=== PATIENT | male | born 1980 | race Caucasian/White ===

== ENCOUNTER → 2017-09-24 07:55 | Outpatient (CLI) | payer OTHER, SELFPAY ==
--- NOTE | 2017-09-24 08:13 | RAD_ITS ---
STUDY: X-RAY CHEST REASON FOR EXAM: Male, 36 years old. History of childhood leukemia. TECHNIQUE: PA and lateral views of the chest. COMPARISON: Comparison is made with prior study dated July 21, 2013. FINDINGS: The lungs are clear and expanded. Scattered calcified granulomas. There is no demonstrated pleural abnormality. Normal size heart. Normal mediastinum and ye. Normal visualized pulmonary arteries. Normal visualized aortic arch and descending thoracic aorta. There is demineralization of the osseous structures. Normal visualized ribs, clavicles, and shoulders. There is no demonstrated abnormality of the visualized soft tissue structures of the upper abdomen. RAD/Chest PA and Lateral IMPRESSION: No acute abnormality is seen. Electronically Signed: Maximino Hogan MD at 15:16 EDT Tel [phone], Service support ,
--- NOTE | 2017-09-24 08:13 | RAD_ITS ---
STUDY: X-RAY - SOFT TISSUE NECK REASON FOR EXAM: Male, 36 years old. Right cervical mass. History of childhood leukemia. TECHNIQUE: AP and lateral view(s) of the neck were obtained. COMPARISON: None. FINDINGS: Normal visualized nasopharynx, oropharynx, hypopharynx. Normal epiglottis. Normal visualized subglottic tracheal air column. Normal prevertebral soft tissue structures. Normal visualized osseous structures. The soft tissue structures are unremarkable. RAD/Neck for Soft Tissue IMPRESSION: Normal x-ray soft tissue neck. Electronically Signed: Maximino Hogan MD at 15:16 EDT Tel [phone], Service support ,
[2017-09-24 10:54] LABS: Absolute Lymphocyte Count 2.06 X10^3/ul (0.83-4.51); Absolute Neutrophil Count 2.9 X10^3/uL (2.0-7.7); Basophil# 0.04 X10^3/uL; Basophil% 0.7 % (0-1); Eosinophil# 0.24 X10^3/uL; Eosinophils% 4.1 % (0-5); Hematocrit 42.8 % (40-54); Hemoglobin 15.2 g/dl (13.0-16.5); Lymphocyte # 2.06 X10^3/ul (4.0); Lymphocyte % 35.2 % (19-41); Mean Corp Hgb Conc 35.5 g/gl (32-36); Mean Corpuscular Hgb 31.5 pg (27.0-32.0); Mean Corpuscular Volume 88.6 fL (80-94); Mean Platelet Vol. 9.2 fl (6.2-12.0); Monocyte# 0.58 X10^3/uL; Monocyte% 9.9 % (0-10); Neutrophil # 2.93 X10^3/uL (2.7-7.7); Neutrophil % 50.1 % (47-70); POSITIVE COUNT NO; POSITIVE DIFFERENTIAL NO; POSITIVE MORPHOLOGY NO; Platelet Count 310 K/mm3 (150-450); RBC Distribution Width SD 38.6 fl (35.1-43.9); Red Blood Count 4.83 M/mm3 (4.6-6.2); White Blood Count 5.9 K/mm3 (4.4-11.0)
[2017-09-24 11:16] LABS: AST(SGOT) 25 U/L (15-37); Alanine Aminotransfer ALT/SGPT 50 U/L (16-61); Albumin, Serum 3.9 g/dL (3.2-5.0); Alkaline Phosphatase 111 U/L (45-117); Anion Gap 7 (5-15); BUN 13 mg/dL (7-18); Calcium,Total 8.9 mg/dL (8.5-10.1); Chloride 100 mmol/L (98-107); Cholesterol 194 mg/dL (200); EST Glomerular Filtration Rate 91 mL/min (>60); Est Glom Filt Rate - Afr Amer 110 mL/min (>60); Glucose 99 mg/dL (74-106); High Density Lipoprotein 38 mg/dL; Potassium 3.8 mmol/L (3.5-5.1); Protein, Total 7.9 g/dL (6.4-8.2); Sodium Level 137 mmol/L (136-145); Thyroid Stim Hormone (TSH) 1.71 uIU/mL (0.358-3.74); Triglycerides 96 mg/dL; Very Low Density Lipoprotein 19 mg/dL (5-40)
== END ==
PROVIDERS: Internal Medicine Rheumatology; Family Provider Family Medicine; PCP Family Medicine; Visit Provider Family Medicine
DX: Z00.00 Encounter for general adult medical examination without abnormal findings (principal); R22.1 Localized swelling, mass and lump, neck; C94.81 Other specified leukemias, in remission
CPT/HCPCS: 36415; 70360; 71046; 80053; 80061; 84443; 85025

== ENCOUNTER → 2023-11-26 | Outpatient (CLI) | payer BC, SELFPAY ==
[2023-11-26 10:53] LABS: Absolute Lymphocyte Count 2.29 X10^3/uL (0.83-4.51); Absolute Neutrophil Count 1.9 X10^3/uL (2.0-7.7); Basophil# 0.06 X10^3/uL; Basophil% 1.2 % (0-1); Eosinophil# 0.19 X10^3/uL; Eosinophils% 3.9 % (0-5); Hematocrit 43.3 % (40-54); Hemoglobin 15.1 g/dL (13.0-16.5); Lymphocyte # 2.29 X10^3/ul (0.83-4.51); Mean Corp Hgb Conc 34.9 g/dL (32-36); Mean Corpuscular Hgb 31.3 pg (27.0-32.0); Mean Corpuscular Volume 89.8 fL (80-94); Monocyte# 0.46 X10^3/uL; Monocyte% 9.4 % (0-10); NRBC Flagged by Analyzer 0 % (0-5); Neutrophil # 1.87 X10^3/uL (2.7-7.7); Neutrophil % 38.5 % (47-70); Platelet Count 300 K/mm3 (150-450); RBC Distribution Width CV 11.4 % (11.6-14.6); RBC Distribution Width SD 37.2 fl (35.1-43.9); Red Blood Count 4.82 M/mm3 (4.6-6.2); White Blood Count 4.9 K/mm3 (4.4-11.0)
[2023-11-26 11:44] LABS: ALB/GLOB Ratio 1.1 RATIO (0.9-2.4); AST(SGOT) 31 U/L (15-37); Alanine Aminotransfer ALT/SGPT 49 U/L (16-61); Albumin, Serum 3.9 g/dL (3.2-5.0); Alkaline Phosphatase 105 U/L (45-117); Anion Gap 5 (5-15); BUN 12 mg/dL (7-18); BUN/Creat Ratio 10.9 RATIO (10-20); Chloride 104 mmol/L (98-107); Cholesterol 222 mg/dL (200); EST Glomerular Filtration Rate 78 mL/min (>60); Est Glom Filt Rate - Afr Amer 95 mL/min (>60); Globulin 3.7 g/dL (2.2-4.2); Glucose 85 mg/dL (74-106); High Density Lipoprotein 33 mg/dL; Potassium 3.7 mmol/L (3.5-5.1); Protein, Total 7.6 g/dL (6.4-8.2); Sodium Level 136 mmol/L (136-145); Triglycerides 162 mg/dL; Very Low Density Lipoprotein 32 mg/dL (5-40)
[2023-11-26 12:50] LABS: Microalbumin,Random Urine < 5.0 mg/L (NO RANGE EST.)
== END | disposition home or self-care (01) ==
LOC: MTLAB 09:04
PROVIDERS: PCP Family Medicine; Referring Provider Family Medicine; Visit Provider Family Medicine
DX: E78.00 Pure hypercholesterolemia, unspecified (principal); I10 Essential (primary) hypertension
CPT/HCPCS: 36415; 80053; 80061; 82043; 82570; 85025

== ENCOUNTER → 2025-02-14 | Outpatient (CLI) | payer BC, SELFPAY ==
[2025-02-14 10:49] LABS: AST(SGOT) 31 U/L (<=37); Alanine Aminotransfer ALT/SGPT 35 U/L (<=46); Albumin, Serum 4.4 g/dL (3.5-5.0); Alkaline Phosphatase 105 U/L (40-129); Anion Gap 11 (5-15); BUN 10 mg/dL (4-19); BUN/Creat Ratio 9.5 RATIO (10-20); Calcium,Total 10.7 mg/dL (7.6-11.0); Carbon Dioxide 26.1 mmol/L (21.0-32.0); Chloride 101 mmol/L (98-108); Globulin 3.1 g/dL (2.2-4.2); Glucose 123 mg/dL (70-99); Potassium 4.3 mmol/L (3.3-5.1)
[2025-02-14 10:59] LABS: Creatinine, Urine (random) 193.00 mg/dL (39.00-259.00); Microalbumin,Random Urine < 12.0 mg/L (<20 mg/L)
== END | disposition home or self-care (01) ==
LOC: MTLAB 09:09
PROVIDERS: PCP Family Medicine; Referring Provider Family Medicine; Visit Provider Family Medicine
DX: I10 Essential (primary) hypertension (principal)
CPT/HCPCS: 36415; 80053; 82043; 82570

== ENCOUNTER 2025-03-06 08:21 | Observation (INO) | payer BC, SELFPAY ==
[2025-03-06] VITALS (17 sets, daily range): BP systolic 102–137; BP diastolic 60–104; PULSE 78–108; RESP 16–22; TEMP 36–37; O2SAT 88–100; BMI 28.6
--- NOTE | 2025-03-06 08:29 | CT_ITS ---
PROCEDURE: ABDOMEN/PELVIS W IV CONT ONLY 03/06/2025 REASON FOR EXAM: NAUSEA AND VOMITING, PAIN TECHNIQUE: ABDOMEN/PELVIS W IV CONT ONLY Coronal and Sagittal reconstruction series were provided. CONTRAST: Isovue-300 VOLUME: 100 mL One or more dose reduction techniques were used (e.g., Automated exposure control, adjustment of the mA and/or kV according to patient size, use of iterative reconstruction technique. RADIATION DOSE SUMMARY: CTDlvol: 14 mGy DLP: 908.02 mGycm COMPARISON: None FINDINGS: Lung bases: Unremarkable Liver: Normal size. No mass. Gallbladder: The gallbladder is unremarkable. No evidence of gallstones. Spleen: Normal size. Pancreas: Normal size without evidence of mass surrounding inflammation or ductal dilation. Adrenals: Unremarkable Kidneys: Unremarkable Bladder: Unremarkable The prostate is not enlarged. Bowel: Fluid-filled stomach. Nonspecific bowel gas pattern. Appendix: The appendix appears distended with a surrounding inflammatory process. Findings present are consistent with appendicitis. No evidence of abscess. A calcified appendicolith measuring 6.5 mm is seen in the proximal portion of the appendix. Lymph nodes: Unremarkable. Vasculature: The abdominal aorta and IVC are normal. Peritoneum / Retroperitoneum: Unremarkable Bones: Unremarkable CT/Abdomen/Pelvis W IV Cont ONLY IMPRESSION: Findings in keeping with acute appendicitis. There is a 6.5 mm appendicolith i n the proximal portion of the appendix. Reading Location: [id number]
--- NOTE | 2025-03-06 08:30 | ED.VIS.GI ---
HPI HPI - GI History of Present Illness Chief Complaint: Abd Pain Narrative Narrative: 44-year-old male who denies significant past medical history presents with abdominal pain, nausea and vomiting that started earlier this morning, few hours ago. He states that around 8 or 9 PM, he had pizza that was greasy for dinner. Shortly thereafter started developing a stomachache. He has been up intermittently, but did not start vomiting until around 6:00 this morning, approximately 2-1/2 hours ago. States he is vomited 8 or 9 times without any blood in his emesis. No fevers but he feels chilled. No diarrhea. He feels dehydrated. PFSH PFS Home Medications ?Medication ?Instructions ?Recorded ?Last Taken ?Type amlodipine 2.5 mg tablet 2.5 mg PO DAILY 03/06/25 03/05/25 History magnesium oxide 400 mg (241.3 mg 400 mg PO DAILY 03/06/25 03/05/25 History magnesium) tablet ramipril 2.5 mg capsule 2.5 mg PO QPM 03/06/25 03/05/25 History Allergy/AdvReac Type Severity Reaction Status Date / Time No Known Allergies Allergy Verified 06/19/15 21:47 Social History Smoking Status: Never smoker ROS ROS ED ROS Narrative Review of systems positive for periumbilical pain. Positive nausea and vomiting. No hematemesis. No fever, positive chills. No diarrhea. No exacerbating or alleviating factors. EXAM Physical Exam Narrative Exam Narrative: Afebrile. Vital signs noted. Nontoxic-appearing. Cardiovascular examination feels regular rate and rhythm. Lungs are clear to auscultation bilaterally. Abdomen is soft and diffusely tender in the periumbilical area. No rebound or guarding. Negative Rovsing sign. No pain in right upper quadrant. Positive bowel sounds. Neurological examination nonfocal, nonlateralizing. Const Vital Signs: 03/06/25 08:22 Temperature 96.8 F L Temperature Source Temporal Pulse Rate 79 Respiratory Rate 22 H Blood Pressure 137/99 H Blood Pressure Mean 111 Pulse Ox 100 Oxygen Delivery Method Room Air MDM MDM MDM Narrative Medical decision making narrative: Differential diagnosis includes but not limited to gastritis/gastroenteritis versus acute appendicitis versus diverticulitis versus colitis. Patient initially given morphine and ondansetron for analgesia. I reviewed his laboratory work and he has slight leukocytosis of 13.0 with hemoglobin 16.0, hematocrit 43.7, platelet count 342. Glucose 133 and electrolyte panel otherwise unremarkable, LFTs normal. Urinalysis negative for infection with 0-5 WBCs. I reviewed the radiology report and he has acute appendicitis with an appendicolith measuring 6.5 mm. Upon repeat examination, his abdomen remains soft and he has negative rebound or guarding, negative Rovsing sign. He did require additional pain medication in the form of Dilaudid 0.5 mg. He was started on Zosyn as well. I discussed the patient with Dr. Nobles. Patient evaluated in the ED by the PA-C with surgery. Patient will be admitted to the medical surgical floor with plan for OR later in the day. Disposition is admitted in stable condition. History & Record Review Discussion w/independent historian: Patient and Family () Additional record(s) reviewed:: Prior ED visit (Previous gastroenteritis) Lab Data Attestation: I reviewed the patient's lab results. Labs: Laboratory Results - last 24 hr 03/06/25 03/06/25 08:35 09:48 WBC 13.0 H RBC 5.10 Hgb 16.0 Hct 43.7 MCV 85.7 MCH 31.4 MCHC 36.6 H RDW Std Deviation 36.2 RDW Coeff of Katie 11.6 Plt Count 342 MPV 8.5 Immature Gran % (Auto) 0.400 Neut % (Auto) 75.3 H Lymph % (Auto) 15.4 L Petroleum % (Auto) 7.3 Eos % (Auto) 0.8 Baso % (Auto) 0.8 Absolute Neuts (auto) 9.8 H Absolute Lymphs (auto) 2.01 Nucleated RBC % 0 Sodium 137 Potassium 3.8 Chloride 99 Carbon Dioxide 22.6 Anion Gap 15 BUN 12 Creatinine 0.97 Estim Creat Clear Calc 95.57 Est GFR (MDRD) Non-Af 100 BUN/Creatinine Ratio 12.4 Glucose 133 H Calcium 10.5 Total Bilirubin 0.69 AST 28 ALT 33 Alkaline Phosphatase 113 Total Protein 7.7 Albumin 4.5 Globulin 3.2 Albumin/Globulin Ratio 1.4 Urine Color Yellow Urine Clarity Clear Urine pH 8.0 Ur Specific Bod[place] 1.015 Urine Protein Negative Urine Glucose (UA) Normal Urine Ketones Negative Urine Occult Blood Negative Urine Nitrite Negative Urine Bilirubin Negative Urine Urobilinogen Normal Ur Leukocyte Esterase Negative Urine RBC 0 SEEN Urine WBC 0-5 SEEN Ur Squamous Epith Cells 0 SEEN Urine Bacteria RARE Urine Mucus 0 SEEN Radiography Diagnostic Testing: Clinical Impression(s) from Imaging Studies Abdomen/Pelvis CT 03/06/25 08:29 IMPRESSION: Findings in keeping with acute appendicitis. There is a 6.5 mm appendicolith in the proximal portion of the appendix. 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
[2025-03-06] MEDS: 0.9% Normal Saline (1000mL) 1,000 ML 999 ML IV (08:51)
[2025-03-06 08:54] LABS: Hematocrit 43.7 % (40-54); Hemoglobin 16.0 g/dL (13.0-16.5); Immature Granulocytes Count 0.050 X10^3/uL (0.0-0.0); Mean Corp Hgb Conc 36.6 g/dL (32-36); Mean Corpuscular Volume 85.7 fL (80-94); Mean Platelet Vol. 8.5 fl (6.2-12.0); NRBC Flagged by Analyzer 0 % (0-5); Platelet Count 342 K/mm3 (150-450); RBC Distribution Width CV 11.6 % (11.6-14.6); RBC Distribution Width SD 36.2 fl (35.1-43.9); Red Blood Count 5.10 M/mm3 (4.6-6.2); White Blood Count 13.0 K/mm3 (4.4-11.0)
[2025-03-06 09:43] LABS: AST(SGOT) 28 U/L (<=37); Alanine Aminotransfer ALT/SGPT 33 U/L (<=46); Albumin, Serum 4.5 g/dL (3.5-5.0); Alkaline Phosphatase 113 U/L (40-129); Anion Gap 15 (5-15); BUN 12 mg/dL (4-19); BUN/Creat Ratio 12.4 RATIO (10-20); Calcium,Total 10.5 mg/dL (7.6-11.0); Carbon Dioxide 22.6 mmol/L (21.0-32.0); Chloride 99 mmol/L (98-108); Estimated Creatinine Clearance 95.57 ml/min (50-250); Globulin 3.2 g/dL (2.2-4.2); Glucose 133 mg/dL (70-99); Potassium 3.8 mmol/L (3.3-5.1)
[2025-03-06 09:50] LABS: Mucous, Urine 0 SEEN /hpf (<or=2+); Red Blood Cells-Urine 0 SEEN /hpf (0-5); Squamous Epithelial Cells - UA 0 SEEN /hpf (0-5)
[2025-03-06 09:51] LABS: Color, Urine Yellow (Yellow); Glucose, Dipstick Normal (Normal); Ketone-Dipstick Negative (Negative); Leukocyte Esterase-Dipstick Negative /ul (Negative); Nitrite-Dipstick Negative (Negative); Occult Blood-Urine Negative /ul (Negative); Protein-Dipstick Negative (Negative); Specific Gravity, Urine 1.015 (1.002-1.030); Urine Bilirubin Dipstick Negative (Negative)
--- NOTE | 2025-03-06 10:33 | PCM.HP.STD ---
HPI - General General Date of Admission: 03/06/25 Date of Service: 03/06/25 Chief Complaint: Abdominal pain HPI Narrative JOELLE GARCIA, is a 44 M who presents with a 1 day history of worsening abdominal pain, nausea and vomiting. Patient notes eating [employer] pizza last night, which had been very greasy. Patient provided little history. Majority of history was per patient's . Patient notes around 9 pm he started with abdominal pain. At 5 AM the nausea and multiple episodes of vomiting started. He contacted his at work noting he needed to go to the ED. She had noted patient was short of breath as well. Patient notes appetite and bowel habits have been normal leading up to this point. Patient denies any previous abdominal surgeries. 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 He notes being in remission since the age of 12. He denies any cardiac or pulmonary history. He denies any blood clots previously. CT scan of the ab/pel demonstrated the following: The appendix appears distended with a surrounding inflammatory process. Findings present are consistent with appendicitis. No evidence of abscess. A calcified appendicolith measuring 6.5 mm is seen in the proximal portion of the appendix. WBC 13.0 with left shift, Hgb 16.0, Hct 43.7, Plt 342 PFSH Home Medications ?Medication ?Instructions ?Recorded ?Last Taken ?Type amlodipine 2.5 mg tablet 2.5 mg PO DAILY 03/06/25 03/05/25 History magnesium oxide 400 mg (241.3 mg 400 mg PO DAILY 03/06/25 03/05/25 History magnesium) tablet ramipril 2.5 mg capsule 2.5 mg PO QPM 03/06/25 03/05/25 History Allergy/AdvReac Type Severity Reaction Status Date / Time No Known Allergies Allergy Verified 03/06/25 10:40 Social History Smoking Status: Never smoker ROS Constitutional Constitutional: Reports systems reviewed and no addt'l complaints, except as documented Eyes Eyes: Reports systems reviewed and no addt'l complaints, except as documented ENT HEENT: Reports systems reviewed and no addt'l complaints, except as documented Cardiovascular Cardiovascular: Reports systems reviewed and no addt'l complaints, except as documented Respiratory/Chest Respiratory/Chest: Reports systems reviewed and no addt'l complaints, except as documented Gastrointestinal Gastrointestinal: Reports systems reviewed and no addt'l complaints, except as documented Genitourinary Genitourinary: Reports systems reviewed and no addt'l complaints, except as documented Musculoskeletal Musculoskeletal: Reports systems reviewed and no addt'l complaints, except as documented Integumentary Integumentary: Reports systems reviewed and no addt'l complaints, except as documented Neurologic Neurologic: Reports systems reviewed and no addt'l complaints, except as documented Psychiatric Psychiatric: Reports systems reviewed and no addt'l complaints, except as documented Endocrine Endocrinology: Reports systems reviewed and no addt'l complaints, except as documented Hematologic/Lymphatic Hematologic/Lymphatic: Reports systems reviewed and no addt'l complaints, except as documented Allergic/Immunologic Allergic/Immunologic: Reports systems reviewed and no addt'l complaints, except as documented Vital Signs Vital Signs Vital Signs: 03/06/25 08:22 Temperature 96.8 F L Temperature Source Temporal Pulse Rate 79 Respiratory Rate 22 H Blood Pressure 137/99 H Blood Pressure Mean 111 Pulse Ox 100 Oxygen Delivery Method Room Air Weight Weight: 172 lb Body Mass Index (BMI) 28.6 Physical Exam Const alert, oriented x3 and no apparent distress HEENT normocephalic and head/scalp atraumatic Eyes PERRL Neck full ROM Resp normal respiratory effort and normal air movement Cardio regular rate and regular rhythm GI GI Narrative: Abdomen- soft, slightly distended, guarding with palpation at the umbilicus and right lower quadrant. Positive Mcburney's sign. Hypoactive bowel sounds. no CVA tenderness Back/Spine no CVA tenderness Extremity normal to inspection Skin no rashes or lesions noted Neuro moves all extremities, no focal motor deficits and no sensory deficits noted Psych mental status grossly normal and cooperative Results Lab / Micro Data 03/06/25 08:35 03/06/25 08:35 Labs: Laboratory Results - last 24 hr 03/06/25 08:35: WBC 13.0 H, RBC 5.10, Hgb 16.0, Hct 43.7, MCV 85.7, MCH 31.4, MCHC 36.6 H, RDW Std Deviation 36.2, RDW Coeff of Katie 11.6, Plt Count 342, MPV 8.5, Immature Gran % (Auto) 0.400, Neut % (Auto) 75.3 H, Lymph % (Auto) 15.4 L, Wetzel % (Auto) 7.3, Eos % (Auto) 0.8, Baso % (Auto) 0.8, Absolute Neuts (auto) 9.8 H, Absolute Lymphs (auto) 2.01, Nucleated RBC % 0, Sodium 137, Potassium 3.8, Chloride 99, Carbon Dioxide 22.6, Anion Gap 15, BUN 12, Creatinine 0.97, Estim Creat Clear Calc 95.57, Est GFR (MDRD) Non-Af 100, BUN/Creatinine Ratio 12.4, Glucose 133 H, Calcium 10.5, Total Bilirubin 0.69, AST 28, ALT 33, Alkaline Phosphatase 113, Total Protein 7.7, Albumin 4.5, Globulin 3.2, Albumin/Globulin Ratio 1.4 03/06/25 09:48: Urine Color Yellow, Urine Clarity Clear, Urine pH 8.0, Ur Specific Leupp 1.015, Urine Protein Negative, Urine Glucose (UA) Normal, Urine Ketones Negative, Urine Occult Blood Negative, Urine Nitrite Negative, Urine Bilirubin Negative, Urine Urobilinogen Normal, Ur Leukocyte Esterase Negative, Urine RBC 0 SEEN, Urine WBC 0-5 SEEN, Ur Squamous Epith Cells 0 SEEN, Urine Bacteria RARE, Urine Mucus 0 SEEN Imaging Radiology Impression Abdomen/Pelvis CT 03/06/25 08:29 IMPRESSION: Findings in keeping with acute appendicitis. There is a 6.5 mm appendicolith in the proximal portion of the appendix. Reading Location: [id number] Assessment & Plan Assessment/Plan (1) Acute appendicitis: QUALIFIERS: Acute appendicitis type: with localized peritonitis Appendicitis gangrene presence: without gangrene Appendicitis perforation presence: without perforation Appendicitis abscess presence: without abscess Qualified Code(s): K35.30 - Acute appendicitis with localized peritonitis, without perforation or gangrene PLAN: I am seeing this patient in conjunction with Dr. Nobles. He will independently evaluate this patient. Patient is a 44 y/o M who presented with a 1 day history of umbilical/right lower quadrant pain with associated nausea and vomiting. CT scan confirms acute appendicitis with an appendicolith present. Dr. Nobles will plan to perform a laparoscopic appendectomy. Procedure details, risks and benefits have been explained to the patient. Patient and his have had the opportunity to ask and have questions answered. Patient verbally understands and agrees with the plan. Post-operative instructions were also reviewed with the patient and his . Plan to admit patient for observation with the possibility of discharge post-operatively today versus discharge tomorrow. Thank you for allowing us to participate in this patient's care. Charges/Coding Visit Charges OBSV E&M: 77147 Observ/hosp same date L2
[2025-03-06] MEDS: Piperacil/Tazobactam 3.375 GM in 0.9% Normal Saline (50mL MB+) 50 ML IV ×3 (10:35→23:27)
[2025-03-06] MEDS: HYDROmorphone 0.5 MG/0.5 ML SYRINGE IV (10:35)
[2025-03-06] MEDS: 0.9% Normal Saline (1000mL) 1,000 ML 100 ML IV ×2 (12:23→17:43)
[2025-03-06] MEDS: 0.9% Saline Lock 10 ML Syringe IV (12:49)
--- NOTE | 2025-03-06 13:44 | NURSING ---
Pt sent for surgery
--- NOTE | 2025-03-06 14:01 | PCM.PRE.AN2 ---
ASA Classification* ASA Classification ASA Classification: 2 and E Assessment & Plan Anesthesia* Anesthesia Assessment Anesthesia Assessment: Discussed sedation and/or anesthesia options, risks, benefits, and alternatives with patient/parents/legal guardian/POA. Questions invited. The patient/parents/legal guardian/POA seems to understand and agrees to proceed with anesthesia plan. Reviewed the physical assessment, medical history, allergy history and patient home medications list prior to surgery/procedure/anesthetic and documented any changes. Performed airway and anesthesia risk assessments. Anesthesia Type Anesthesia Type: General History Source History Obtained from:: Patient and Chart Anesthesia Focused Assessment* Temperature: 98.5 F Pulse Rate: 85 Blood Pressure: 130/84 Respiratory Rate: 18 Pulse Ox: 100 Oxygen Delivery Method: Room Air Airway Assessment Mouth opens: >3 cm Mallampati Score: IV Teeth Condition: Caps/Crowns (Patient has couple caps. They are tight.) and Missing (Patient has a couple missing teeth. Rest of the teeth are tight.) Neck Range of motion (ROM): Limited ROM (Slight Decrease) Labs Anesthesia Preop lab: CBC WBC 13.0 K/mm3 (4.4-11.0) H 03/06/25 08:35 03/06/25 RBC 5.10 M/mm3 (4.6-6.2) 03/06/25 08:35 03/06/25 Hgb 16.0 g/dL (13.0-16.5) 03/06/25 08:35 03/06/25 Hct 43.7 % (40-54) 03/06/25 08:35 03/06/25 Plt Count 342 K/mm3 (150-450) 03/06/25 08:35 03/06/25 CHEMISTRY Potassium 3.8 mmol/L (3.3-5.1) 03/06/25 08:35 03/06/25 Sodium 137 mmol/L (133-145) 03/06/25 08:35 03/06/25 BUN 12 mg/dL (4-19) 03/06/25 08:35 03/06/25 Creatinine 0.97 mg/dL (0.70-1.20) 03/06/25 08:35 03/06/25 Glucose 133 mg/dL (70-99) H 03/06/25 08:35 03/06/25 TSH 1.71 uIU/mL (0.358-3.74) 09/24/17 08:01 09/24/17 COAG Pre-Assessment Diagnosis/Proposed Procedure Planned Operative Procedure(s): Laparoscopic appendectomy Anesthesia History 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 When Was Last Pacemaker Check QUESTION #4 FULL TEXT: You/Your Family Experience fever (hyperthermia) with Anesthesia Last Oral Intake Last Oral intake: Last Oral Intake NPO since No Meds taken in AM with sips of water? Meds patient instructed to take am of surgery PONV PONV - fast food shift supervisor: PONV - fast food shift supervisor Female HX of Motion Sickness HX of N/V After Surgery Non-Smoker Duration of Surgery greater than 60 minutes Number of Risk Factors PONV Score Height & Weight Height & Weight: Anesthesia: Height & Weight Height 5 ft 5 in 03/06/25 11:35 Weight: 78.018 kg 03/06/25 11:35 Body Mass Index (BMI) 28.6 03/06/25 11:35 Respiratory Assessment Respiratory Assessment - fast food shift supervisor: Respiratory Tract Infection Hx - fast food shift supervisor Hx Respiratory Tract Infection No STOP Sleep Apnea STOP Sleep Apnea - fast food shift supervisor: STOP Sleep Apnea - fast food shift supervisor Hx Hypertension Yes 03/06/25 11:35 Hx Sleep Apnea No 03/06/25 11:35 CPAP BIPAP Do you snore loudly (louder No 03/06/25 11:35 than talking or can be heard Do you often feel tired/ No 03/06/25 11:35 fatigued/ sleepy during daytime? Has anyone observed you stop No 03/06/25 11:35 breathing during sleep? STOP Results Negative 03/06/25 11:35 QUESTION #5 FULL TEXT : Do you snore loudly (louder than talking or can be heard through closed doors)? Tobacco Use History Tobacco Use History - fast food shift supervisor: Tobacco Use History - fast food shift supervisor Tobacco Use Smoking Status Never smoker 03/06/25 11:35 Hx Tobacco Use No 03/06/25 11:35 Years Smoking Packs Smoked per Day Smoking Cessation Date was within the last 15 years Hx Smoking Cessation Date Hx Smoking Cessation Counseling Hematologic Medial History Hematologic Hx - fast food shift supervisor: Hematologic Medical Hx - fermenting cellar dropper Hx of Blood Transfusion Yes 03/06/25 11:35 Hx of Transfusion in last 3 No 03/06/25 11:35 Months Date of Last Transfusion (if within last 3 months) Ever experience any problems No 03/06/25 11:35 with transfusion(s)? Specify any problems Hx of Preganancy in last 3 N/A 03/06/25 11:35 Months Nurse Filling Out Transfusion [id number] 03/06/25 11:35 & Questions: Date: 03/06/25 03/06/25 11:35 Time: 11:46 03/06/25 11:35 Patient unable to answer at this time (ie. confused, unrespo /Reproduction History /Reproductive History - fast food shift supervisor: /Reproductive Hx- fast food shift supervisor Hx Now Gestational Age (in weeks): EDC: Hx Hx Para Hx Section SAB Active Medications Active Medications: Current Medications Generic Name Dose Route Start Last Admin Trade Name Freq PRN Reason Stop Dose Admin Acetaminophen 650 mg 03/06/25 11:35 Acetaminophen 325 Mg Tablet PO Q6H PRN PRN Pain 1-10 Or Fever >100.7 Docusate Sodium 100 mg 03/06/25 11:35 Docusate Sodium 100 Mg Capsule PO BID PRN PRN Constipation Sodium Chloride 1,000 mls @ 100 mls/hr 03/06/25 11:35 03/06/25 12:23 IV 100 mls/hr .Q10H JR Administration Piperacillin Sod/Tazobactam 50 mls @ 12.5 mls/hr 03/06/25 17:00 Sod 3.375 gm/ Sodium Chloride IV Q8 JR Sodium Chloride 250 mls @ 15 mls/hr 03/06/25 11:48 IV .[id number] PRN Saline Flush Sodium Chloride 250 mls @ 15 mls/hr 03/06/25 11:48 IV .[id number] PRN Additional IVPB Infusion Morphine Sulfate 2 - 4 mg 03/06/25 11:35 03/06/25 12:49 Morphine 2 Mg/Ml Syringe IV 2 mg Q3H PRN PRN Administration Pain Score 6-10 Ondansetron HCl 4 mg 03/06/25 11:35 Ondansetron 4 Mg/2 Ml Vial IV Q8H PRN PRN NAUSEA/VOMITING Oxycodone HCl 5 mg 03/06/25 11:35 Oxycodone 5 Mg Tablet PO Q4H PRN PRN Pain Score 4-10 Sodium Chloride 10 - 40 ml 03/06/25 11:48 03/06/25 12:49 0.9% Saline Lock 10 Ml Syringe IV 10 ml UD PRN Administration SALINE FLUSH [facility] Medical History (Updated 03/06/25 @ 14:[address] Kennedy Solano MD) Leukemia in remission Hypertension Home Medications ?Medication ?Instructions ?Recorded ?Last Taken ?Type amlodipine 2.5 mg tablet 2.5 mg PO DAILY 03/06/25 03/05/25 History magnesium oxide 400 mg (241.3 mg 400 mg PO DAILY 03/06/25 03/05/25 History magnesium) tablet ramipril 2.5 mg capsule 2.5 mg PO QPM 03/06/25 03/05/25 History Allergy/AdvReac Type Severity Reaction Status Date / Time No Known Allergies Allergy Verified 03/06/25 10:40 no surgical history Social History Smoking Status: Never smoker Review of Systems (Anesthesia) ROS Narrative System reviewed and no additional complaints, except as documented.
--- NOTE | 2025-03-06 15:00 | APP_PTH ---
PATIENT: JOLELE GARCIA LOC: [facility] U#:[id number] AGE/SX: 44/M ROOM: MT315 RE03/06/[address]: Dr. Isaac Nobles MD : 1980 BED: 1 DIS: 03/07/2025 SPEC #: [id number] RECD: 03/06/25 18:15 STATUS: RHODA MATA #: [id number] TOSHIA: 03/06/25 15:[address]: Isaac Nobles DEPT: SURGICAL PATHOLOGY RECD BY: Will Aliica ENTERED: 03/07/25 11:06 SP TYPE: APPENDIX OTHR DR: Dr. Arias Small MD Tissues: A - Appendix, NOS Procedures: Surgery Specimen Level III HEADER OPERATION: Laparoscopic appendectomy PRE-OP DIAGNOSIS: Acute appendicitis TISSUE SUBMITTED: A- Appendix MICROSCOPIC DIAGNOSIS A. Appendix, laparoscopic appendectomy: - Acute appendicitis. MICROSCOPIC DESCRIPTION Slides are reviewed. GROSS DESCRIPTION A. Received in formalin labeled with the patient's name and date of . Designated as appendix is a 7.9 x 1.3 cm justin-hdz appendix with patchy serosal congestion and fibrinous exudate. The margin is inked black and shaved. Sectioning reveals dilated lumen containing copious amounts of fecal material including a possible fecalith. The mucosa is a justin-pink to red and granular. Supervisor Cutting And Boning sections are submitted in 2 cassettes as follows: A1: Distal tipA2: Margin and cross-section ME 03/07/2025 CPT:00292
[2025-03-06] MEDS: Midazolam 2 MG/2 ML Syringe IV (15:14)
[2025-03-06] MEDS: Lidocaine 1% (5 ml sdv) 5 ML Vial IV (15:22)
[2025-03-06] MEDS: fentaNYL 100 MCG/2 ML Ampul 150 MCG IV (15:22)
[2025-03-06] MEDS: Bupiv/Epi 0.25% 30 ML Vial (15:45)
--- NOTE | 2025-03-06 15:51 | OP.PCM_ITS ---
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 The left arm was tucked and the abdomen was prepped and draped in usual sterile fashion. A small midline incision was made superior to the umbilicus and deepened to the level of the fascia. The fascia was elevated and incised. The peritoneum was also elevated and incised. A finger sweep was pe rformed and a balloon trocar was placed into the abdomen and inflated. The abdomen was insufflated to 15 mmHg and the camera was inserted and the abdomen was inspected for any injuries upon entering the abdomen. There were none. The patient was placed in Trendelenburg position and a 5 mm ports placed in the left lower quadrant and suprapubic areas under direct visualization. Next using atraumatic bowel graspers the appendix was identified. The appendix was gangrenous. The appendix was grasped and elevated and Enseal was used to take down the mesoappendix. A stapler was used to come across the base of the appendix. The appendix was then placed in Endo Catch bag and removed through the umbilical incision. The staple line was inspected and found to be hemostatic and intact. The 2 5 mm ports are removed under direct visualization. The balloon trocar was deflated and removed and all the air was removed from the abdomen. The umbilical incision fascia was closed with an 0 Vicryl f [id number] suture. The incisions were then irrigated with saline and dried. Local anesthetic was injected into the incision sites. The skin incisions were then closed with interrupted 4-0 Monocryl suture and Steri-Strips. Bandages were applied and the patient was awoken and taken to PACU in stable condition. Patient tolerated the procedure well. Surgical Findings: Gangrenous appendix, contaminated case Complications Complications: No Admit VTE Documentation VTE Mechan Device Prophylaxis: SCD's
--- NOTE | 2025-03-06 16:11 | PCM.POST.ANE ---
Anesthesia: Postop Eval I Current Vital Signs Temperature: 97.6 F Pulse Rate: 95 Blood Pressure: 111/71 Respiratory Rate: 16 Pulse Ox: 99 Oxygen Delivery Method: Nasal Cannula Oxygen Flow Rate (L/min): 2 Assessment Airway patent: Yes Spontaneous unlabored respirations: Yes Mental status: Awake and Confused nausea: No Vomiting: No Anesthesia Complication: No Fluid Hydration Crystalloid volume administer (ml): 900 Total IV fluid infused: 900 Progress Note Anesthesia document: Postop Eval 1 completed: Yes
--- NOTE | 2025-03-06 17:14 | POSTOPAN2_ITS ---
Anesthesia Postop Eval I Sum Postop Eval Completion status Anesthesia document: Postop Eval 1 completed: Yes Anesthesia Postop Eval I Summary Anesthesia Postop Eval I Summary: Anesthesia Postop Eval I: Assessment Summary Airway patent Yes 03/06/25 16:12 [email or web address] Spontaneous unlabored Yes 03/06/25 16:12 [email or web address] respirations Mental status Awake,Confused 03/06/25 16:12 [email or web address] nausea No 03/06/25 16:12 [email or web address] Vomiting No 03/06/25 16:12 [email or web address] Anesthesia Postop Eval I: Fluid Summary Crystalloid volume administer 900 03/06/25 16:12 [email or web address] (ml) Colloids volume administered ( ml) Blood Product volume administered (ml) Total IV fluid infused 900 03/06/25 16:12 [email or web address] Anesthesia Postop Eval I: Summary Notes Anesthesia Complication No 03/06/25 16:12 [email or web address] Anesthesia Complication Comment: Post-operative progress note Anesthesia: Postop Eval II Evaluation Mental status: Awake and Calm Pain Level: 2 nausea: No Vomiting: No Complications Anesthesia Complication: No
--- NOTE | 2025-03-06 17:14 | PCM.POSTANE2 ---
Anesthesia Postop Eval I Sum Postop Eval Completion status Anesthesia document: Postop Eval 1 completed: Yes Anesthesia Postop Eval I Summary Anesthesia Postop Eval I Summary: Anesthesia Postop Eval I: Assessment Summary Airway patent Yes 03/06/25 16:12 [email or web address] Spontaneous unlabored Yes 03/06/25 16:12 [email or web address] respirations Mental status Awake,Confused 03/06/25 16:12 [email or web address] nausea No 03/06/25 16:12 [email or web address] Vomiting No 03/06/25 16:12 [email or web address] Anesthesia Postop Eval I: Fluid Summary Crystalloid volume administer 900 03/06/25 16:12 [email or web address] (ml) Colloids volume administered ( ml) Blood Product volume administered (ml) Total IV fluid infused 900 03/06/25 16:12 [email or web address] Anesthesia Postop Eval I: Summary Notes Anesthesia Complication No 03/06/25 16:12 [email or web address] Anesthesia Complication Comment: Post-operative progress note Anesthesia: Postop Eval II Evaluation Mental status: Awake and Calm Pain Level: 2 nausea: No Vomiting: No Complications Anesthesia Complication: No
[2025-03-07 03:36] VITALS: BP 117/68; PULSE 75; RESP 18; TEMP 37; O2SAT 99
[2025-03-07] MEDS: 0.9% Normal Saline (1000mL) 1,000 ML 100 ML IV (03:40)
[2025-03-07 05:14] LABS: Hematocrit 40.5 % (40-54); Hemoglobin 14.3 g/dL (13.0-16.5); Immature Granulocytes Count 0.090 X10^3/uL (0.0-0.0); Mean Corp Hgb Conc 35.3 g/dL (32-36); Mean Corpuscular Volume 88.6 fL (80-94); Mean Platelet Vol. 8.8 fl (6.2-12.0); NRBC Flagged by Analyzer 0 % (0-5); Platelet Count 301 K/mm3 (150-450); RBC Distribution Width CV 11.9 % (11.6-14.6); RBC Distribution Width SD 38.4 fl (35.1-43.9); Red Blood Count 4.57 M/mm3 (4.6-6.2); White Blood Count 14.2 K/mm3 (4.4-11.0)
[2025-03-07 05:44] LABS: Anion Gap 10 (5-15); BUN 11 mg/dL (4-19); BUN/Creat Ratio 11.1 RATIO (10-20); Calcium,Total 9.9 mg/dL (7.6-11.0); Carbon Dioxide 21.8 mmol/L (21.0-32.0); Chloride 102 mmol/L (98-108); Estimated Creatinine Clearance 91.78 ml/min (50-250); Glucose 128 mg/dL (70-99); Potassium 4.2 mmol/L (3.3-5.1)
[2025-03-07] MEDS: Piperacil/Tazobactam 3.375 GM in 0.9% Normal Saline (50mL MB+) 50 ML IV (06:41)
--- NOTE | 2025-03-07 07:28 | PN.SURG_ITS ---
Subjective Subjective Patient reports he is passing gas and tolerating a diet. His abdominal pain is well-controlled. Objective Data Objective Data Vital Signs: Vital Signs Temp Pulse Resp BP Pulse Ox O2 Del Method O2 Flow Rate 98.6 F 75 18 117/68 99 Room Air 4 03/07/25 03:36 03/07/25 03:36 03/07/25 03:36 03/07/25 03:36 03/07/25 03:36 03/07/25 03:36 03/06/25 17:31 Oxygen Flow Rate (L/min) 4 Oxygen Delivery Method Room Air Weight: 172 lb Body Mass Index (BMI) 28.6 Intake & Output: Intake and Output for Last 24 Hours 03/05/25 03/06/25 03/07/25 23:59 23:59 23:59 Intake Total 1616.67 / 1616.67 1285 / 1285 Output Total 505 / 505 Balance 1111.67 / 1111.67 1285 / 1285 Lab / Micro Data 03/07/25 04:23 03/07/25 04:23 Labs: Laboratory Results - last 24 hr 03/06/25 08:35: WBC 13.0 H, RBC 5.10, Hgb 16.0, Hct 43.7, MCV 85.7, MCH 31.4, M CHC 36.6 H, RDW Std Deviation 36.2, RDW Coeff of Katie 11.6, Plt Count 342, MPV 8.5, Immature Gran % (Auto) 0.400, Neut % (Auto) 75.3 H, Lymph % (Auto) 15.4 L, [place] % (Auto) 7.3, Eos % (Auto) 0.8, Baso % (Auto) 0.8, Absolute Neuts (auto) 9.8 H, Absolute Lymphs (auto) 2.01, Nucleated RBC % 0, Sodium 137, Potassium 3.8, Chloride 99, Carbon Dioxide 22.6, Anion Gap 15, BUN 12, Creatinine 0.97, Estim Creat Clear Calc 95.57, Est GFR (MDRD) Non-Af 100, BUN/Creatinine Ratio 12.4, Glucose 133 H, Calcium 10.5, Total Bilirubin 0.69, AST 28, ALT 33, Alkaline Phosphatase 113, Total Protein 7.7, Albumin 4.5, Globulin 3.2, Albumin/Globulin Ratio 1.4 03/06/25 09:48: Urine Color Yellow, Urine Clarity Clear, Urine pH 8.0, Ur Specific [place] 1.015, Urine Protein Negative, Urine Glucose (UA) Normal, Urine Ketones Negative, Urine Occult Blood Negative, Urine Nitrite Negative, Urine Bilirubin Negative, Urine Urobilinogen Normal, Ur Leukocyte Esterase Negative, Urine RBC 0 SEEN, Urine WBC 0-5 SEEN, Ur Squamous Epith Cells 0 SEEN, Urine Bacteria RARE, Urine Mucus 0 SEEN 03/07/25 04:23: WBC 14.2 H, RBC 4.57 L, Hgb 14.3, Hct 40.5, MCV 88.6, MCH 31.3, MCHC 35.3, RDW Std Deviation 38.4, RDW Coeff of Katie 11.9, Plt Count 301, MPV 8.8, Immature Gran % (Auto) 0.600, Neut % (Auto) 91.4 H, Lymph % (Auto) 5.4 L, [place] % (Auto) 2.5, Eos % (Auto) 0.0, Baso % (Auto) 0.1, Absolute Neuts (auto) 13.0 H, Absolute Lymphs (auto) 0.77 L, Nucleated RBC % 0, Sodium 134, Potassium 4.2, Chloride 102, Carbon Dioxide 21.8, Anion Gap 10, BUN 11, Creatinine 1.01, Estim Creat Clear Calc 91.78, Est GFR (MDRD) Non-Af 95, BUN/Creatinine Ratio 11.1, Glucose 128 H, Calcium 9.9 Radiography Diagnostic Testing: Radiology Impression Abdomen/Pelvis CT 03/06/25 08:29 IMPRESSION: Findings in keeping with acute appendicitis. There is a 6.5 mm appendicolith in the proximal portion of the appendix. Reading Location: [facility] Physical Exam Const oriented x3 and no apparent distress Resp normal respiratory effort GI soft to palpation Palpation: tender Assessment & Plan Assessment/Plan (1) Acute appendicitis: QUALIFIERS: Acute appendicitis type: with localized peritonitis A ppendicitis gangrene presence: without gangrene Appendicitis perforation presence: without perforation Appendicitis abscess presence: without abscess Q ualified Code(s): K35.30 - Acute appendicitis with localized peritonitis, without perforation or gangrene PLAN: Patient reports he is doing well. He is tolerating diet and passing flatus. His white count did increase today and this may be reactive but his left shift increased as well and I will send him home on oral antibiotics for a week. I will follow-up with him in 2 weeks. Isaac Nobles MD Pager: [facility] [address] [place] [address], [address] [place] [address] Office:
--- NOTE | 2025-03-07 07:33 | PCM.DC.SUM ---
Providers Date of Admission: 03/06/25 Primary Care Physician: Dr. Arias Small MD Reason For Visit: ACUTE APPENDICITIS Diagnosis Discharge Diagnosis (1) Acute appendicitis: Status: Acute Code(s): K35.80 - Unspecified acute appendicitis Qualifiers: Acute appendicitis type: with localized peritonitis Appendicitis gangrene presence: without gangrene Appendicitis perforation presence: without perforation Appendicitis abscess presence: without abscess Qualified Code(s): K35.30 - Acute appendicitis with localized peritonitis, without perforation or gangrene Plan: Patient reports he is doing well. He is tolerating diet and passing flatus. His white count did increase today and this may be reactive but his left shift increased as well and I will send him home on oral antibiotics for a week. I will follow-up with him in 2 weeks. Isaac Nobles MD Pager: [facility] [address] [place] [address], [address] [place] [address] Office: Medications at Discharge Home Medications amlodipine 2.5 mg tablet 2.5 mg PO DAILY 03/06/25 magnesium oxide 400 mg (241.3 mg magnesium) tablet 400 mg PO DAILY 03/06/25 ramipril 2.5 mg capsule 2.5 mg PO QPM 03/06/25 amoxicillin 500 mg-potassium clavulanate 125 mg tablet (Augmentin) 1 tab PO BID #10 tabs 03/07/25 oxycodone 5 mg tablet 5 mg PO Q4H PRN PRN Pain Score 4-10 5 days #14 tabs 03/07/25 Hospital Course Operations appendectomy Procedures None Summary of Care Provided Hospital Course: Patient was admitted with acute appendicitis. He was taken for surgery and found to have a gangrenous appendix. After surgery he was slowly advance diet once tolerating diet he was discharged home with oral antibiotics Weight / BMI Weight Weight: 172 lb Body Mass Index (BMI) 28.6 ABG / Lab / Microbiology Data 03/07/25 04:23 03/07/25 04:23 Laboratory: Laboratory Results - last 24 hr 03/06/25 08:35: WBC 13.0 H, RBC 5.10, Hgb 16.0, Hct 43.7, MCV 85.7, MCH 31.4, MCHC 36.6 H, RDW Std Deviation 36.2, RDW Coeff of Katie 11.6, Plt Count 342, MPV 8.5, Immature Gran % (Auto) 0.400, Neut % (Auto) 75.3 H, Lymph % (Auto) 15.4 L, [place] % (Auto) 7.3, Eos % (Auto) 0.8, Baso % (Auto) 0.8, Absolute Neuts (auto) 9.8 H, Absolute Lymphs (auto) 2.01, Nucleated RBC % 0, Sodium 137, Potassium 3.8, Chloride 99, Carbon Dioxide 22.6, Anion Gap 15, BUN 12, Creatinine 0.97, Estim Creat Clear Calc 95.57, Est GFR (MDRD) Non-Af 100, BUN/Creatinine Ratio 12.4, Glucose 133 H, Calcium 10.5, Total Bilirubin 0.69, AST 28, ALT 33, Alkaline Phosphatase 113, Total Protein 7.7, Albumin 4.5, Globulin 3.2, Albumin/Globulin Ratio 1.4 03/06/25 09:48: Urine Color Yellow, Urine Clarity Clear, Urine pH 8.0, Ur Specific [place] 1.015, Urine Protein Negative, Urine Glucose (UA) Normal, Urine Ketones Negative, Urine Occult Blood Negative, Urine Nitrite Negative, Urine Bilirubin Negative, Urine Urobilinogen Normal, Ur Leukocyte Esterase Negative, Urine RBC 0 SEEN, Urine WBC 0-5 SEEN, Ur Squamous Epith Cells 0 SEEN, Urine Bacteria RARE, Urine Mucus 0 SEEN 03/07/25 04:23: WBC 14.2 H, RBC 4.57 L, Hgb 14.3, Hct 40.5, MCV 88.6, MCH 31.3, MCHC 35.3, RDW Std Deviation 38.4, RDW Coeff of Katie 11.9, Plt Count 301, MPV 8.8, Immature Gran % (Auto) 0.600, Neut % (Auto) 91.4 H, Lymph % (Auto) 5.4 L, [place] % (Auto) 2.5, Eos % (Auto) 0.0, Baso % (Auto) 0.1, Absolute Neuts (auto) 13.0 H, Absolute Lymphs (auto) 0.77 L, Nucleated RBC % 0, Sodium 134, Potassium 4.2, Chloride 102, Carbon Dioxide 21.8, Anion Gap 10, BUN 11, Creatinine 1.01, Estim Creat Clear Calc 91.78, Est GFR (MDRD) Non-Af 95, BUN/Creatinine Ratio 11.1, Glucose 128 H, Calcium 9.9 Radiography Diagnostic Testing: Radiology Impression Abdomen/Pelvis CT 03/06/25 08:29 IMPRESSION: Findings in keeping with acute appendicitis. There is a 6.5 mm appendicolith in the proximal portion of the appendix. Reading Location: [id number] Instructions Discharge Activity: May Not Drive (for 2-3 days or while taking narcotic pain medications) and May Shower Lifting Restrictions: 15 lbs for 2 weeks, may return to work light duty in 1 week Call your doctor if your incision/area has: Continuous Slow Oozing, Sudden Increased Bleeding, Increased Pain/ Swelling, Increased Redness and Foul Smelling Discharge Call your doctor if you observe: Fever of 101 or Higher Suture Line Care: Avoid Pulling/Pushing and Avoid Pinching/Bending Remove Dressing in: 2 days Cleanse incision/area with: Soap & Water Additional Dressing/Incision Instructions: Alternate ibuprofen and Tylenol for pain control, oxycodone for breakthrough pain. Narcotic pain medication will constipate you so you should take some MiraLAX or Colace DC O2, CPAP, BIPAP Needs Home O2 Discharge instructions: No Additional Instructions: Keep dressing clean and dry. Change or remove dressing in 2 days. Leave steri strips for 1 week. May protect with a gauze bandaid. Please Follow Up With: Isaac Nobles MD When: Please call to schedule 2 week follow up appointment at [phone] Meaningful Use Info Meaningful Use Meaningful Use Diagnoses (Choose all that apply): None applicable Discharge Plan Admission Admit Date/Time: 03/06/25 10:28 Attending Provider: Isaac Nobles Primary Care Provider: Arias Small Discharge Orders/Prescriptions Prescriptions: New oxycodone 5 mg Tablet 5 mg PO Q4H PRN PRN (Reason: Pain Score 4-10) 5 Days Qty: 14 0RF amoxicillin-pot clavulanate [Augmentin] 500-125 mg tablet 1 tab PO BID Qty: 10 0RF Continued amlodipine 2.5 mg tablet 2.5 mg PO DAILY magnesium oxide 400 mg (241.3 mg magnesium) tablet 400 mg PO DAILY ramipril 2.5 mg capsule 2.5 mg PO QPM Referrals / Follow Up: Arias Small MD [Primary Care Provider] - Disposition Disposition (needs filled in before D/C Order can be placed): Home, Self Care
[2025-03-07 09:13] VITALS: BP 120/91; PULSE 95; RESP 18; TEMP 36.8; O2SAT 100
--- NOTE | 2025-03-07 10:32 | PHA.DC.MR.R ---
Pharmacy [place] Med Reconciliation Pharmacy Service has performed discharge medication reconciliation for this patient. Medication education papers prepared, patient discharged when counseling was attempted. The patient's discharge medication list was reviewed for discrepancies and discrepancies were resolved. Medications at Discharge Home Medications amlodipine 2.5 mg tablet 2.5 mg PO DAILY 03/06/25 magnesium oxide 400 mg (241.3 mg magnesium) tablet 400 mg PO DAILY 03/06/25 ramipril 2.5 mg capsule 2.5 mg PO QPM 03/06/25 amoxicillin 500 mg-potassium clavulanate 125 mg tablet (Augmentin) 1 tab PO BID #10 tabs 03/07/25 oxycodone 5 mg tablet 5 mg PO Q4H PRN PRN Pain Score 4-10 5 days #14 tabs 03/07/25
== END 2025-03-07 10:15 | disposition home or self-care (01) ==
LOC: ED 10:09 → MS3 10:50
PROVIDERS: Physician Assistant; Admitting Provider Surgery; Emergency Provider Emergency Medicine; PCP Family Medicine; Visit Provider Surgery
PROC: 0DTJ4ZZ Resection of Appendix, Percutaneous Endoscopic Approach (ICD-10-PCS; CPT 44970; principal; 2025-03-06 14:40)
DX: K35.30 Acute appendicitis with localized peritonitis, without perforation or gangrene (principal)
CPT/HCPCS: 44970; 36415; 74177; 80048; 80053; 81001; 85025; 88304; 94668; 96361; 96365; 96366; 96375; 96376; 99221; 99284; Q9967; A4216; G0378; J2405